=== PATIENT | female | born 1965 ===

== ENCOUNTER 2017-06-08 06:12 | Emergency (ER) | payer OTHER ==
[~2017-06-08] VITALS: Ht 154.9 cm; Wt 56.7 kg
--- NOTE | 2017-06-08 06:36 | PHYS DOC ---
Past Medical History Past Medical History: Anxiety, Other Additional Past Medical Histor: NECK PROBLEM, "PRE DIABETES", "KIDNEY PROBLEM" Past Surgical History: Cholecystectomy, Hysterectomy, Other Additional Past Surgical Histo: HERNIA REPAIR Alcohol Use: Occasionally Drug Use: None Adult General Chief Complaint Chief Complaint: BACK INJURY HPI HPI Patient is a 51 year old F who presents with T spine pain s/p fall. Pt was walking dog and fell 3 days ago and fell. No LOC. No RUE pain. No cp, back pain has been getting worse over the past 3 days. No other complaints. Review of Systems Review of Systems Constitutional: Denies fever or chills [] Eyes: Denies change in visual acuity, redness, or eye pain [] HENT: Denies nasal congestion or sore throat [] Respiratory: Denies cough or shortness of breath [] Cardiovascular: No additional information not addressed in HPI [] GI: Denies abdominal pain, nausea, vomiting, bloody stools or diarrhea [] : Denies dysuria or hematuria [] Musculoskeletal: upper back pain Integument: Denies rash or skin lesions [] Neurologic: Denies headache, focal weakness or sensory changes [] Current Medications Current Medications Current Medications Medications (Trade) Dose Ordered Sig/Funmilayo Start Time Stop Time Status Last Admin Dose Admin Ketorolac Tromethamine (Toradol Im) 60 mg 1X ONCE 06/08/17 07:00 06/08/17 07:01 DC 06/08/17 07:34 60 MG Allergies Allergies Allergies Coded Allergies Type Severity Reaction Last Updated Verified latex Allergy Unknown 04/01/15 No morphine Allergy Unknown 04/01/15 Yes Physical Exam Physical Exam Constitutional: Well developed, well nourished, no acute distress, non-toxic appearance. [] HENT: Normocephalic, atraumatic, bilateral external ears normal, oropharynx moist, no oral exudates, nose normal. [] Eyes: PERRLA, EOMI, conjunctiva normal, no discharge. [] Neck: Normal range of motion, no tenderness, supple, no stridor. [] Cardiovascular:Heart rate regular rhythm, no murmur [] Lungs & Thorax: Bilateral breath sounds clear to auscultation [] Abdomen: Bowel sounds normal, soft, no tenderness, no masses, no pulsatile masses. [] Skin: Warm, dry, no erythema, no rash. [] Back: TTP Tspine right paraspinus, no mideline TTP Extremities: No tenderness, no cyanosis, no clubbing, ROM intact, no edema. [] Neurologic: Alert and oriented X 3, normal motor function, normal sensory function, no focal deficits noted. [] Psychologic: Affect normal, judgement normal, mood normal. [] Current Patient Data Vital Signs Vital Signs Date Time Temp Pulse Resp B/P (MAP) Pulse Ox O2 Delivery O2 Flow Rate FiO2 06/08/17 06:20 98.4 80 22 97 Room Air 98.4 EKG EKG [] Radiology/Procedures Radiology/Procedures X-ray of the chest NAD X-ray of the right shoulder no obvious fracture X-ray of the T-spine no obvious fracture [] Course & Med Decision Making Course & Med Decision Making Pertinent Labs and Imaging studies reviewed. (See chart for details) Patient was seen and examined emergency room x-rays of the right shoulder, T- spine, chest x-ray were ordered along with 60 mg of Toradol 0819: Patient was reevaluated in which she was feeling much better and updated on the results of her x-ray. Patient is ready go home. Recommended short-term follow-up with PCP in one to 2 days. Patient was explained she'll be going home with a muscle relaxer and anti-inflammatory pain medication. MDM: After reviewing the chart, CC/HPI/PMH, physical exam, [radiological results], I do not believe the patient sustained a significant traumatic injury warranting further workup and/or admission at this time. On reevaluation the patient has improved and is ready go home. Patient is stable for discharge. Additional verbal discharge instructions were provided to the patient and that if symptoms get worse or any new symptoms arise that are worrisome to the patient she is to return to the emergency room immediately [] Dragon Disclaimer Dragon Disclaimer This electronic medical record was generated, in whole or in part, using a voice recognition dictation system. Departure Departure Impression: Primary Impression: Thoracic spine pain Additional Impressions: Fall Right shoulder pain Disposition: 01 HOME, SELF-CARE Referrals: NO PCP (PCP) Patient Instructions: Back Pain, Adult Additional Instructions: Please follow up with you family doctor next one to 2 days for further evaluation and management Scripts Diazepam (VALIUM) 5 Mg Tablet 5 MG PO TID for 5 Days, #15 TAB Prov: ANDRES RIVAS DO 06/08/17 Ibuprofen (IBUPROFEN) 800 Mg Tablet 800 MG PO PRN Q8HRS Y for PAIN for 10 Days, #40 TAB Prov: ANDRES RIVAS DO 06/08/17 Problem Qualifiers ANDRES RIVAS DO Jun 08, 2017 06:35
[2017-06-08] MEDS ORDERED: KETOROLAC TROMETHAMINE 60 MG/2 ML INJ. IM ONE (07:00)
[2017-06-08] MEDS ORDERED: DIAZ5TAB PO (08:23)
[2017-06-08] MEDS ORDERED: IBUP-1060 PO (08:23)
[2017-06-08 08:33] VITALS: BP 145/67
--- NOTE | 2017-06-08 10:04 | RAD ---
Chest radiograph 2 views 06/08/2017 Clinical indication: Fell 3 days ago with upper back pain and right shoulder pain. Comparison: Chest radiograph 02/26/2009. Findings: Cardiac and mediastinal silhouettes are within normal limits. No pleural effusion, pneumothorax or focal consolidation. Partial visualization right upper quadrant cholecystectomy clips. There is multilevel thoracic spondylosis with mild age-indeterminate anterior superior compression deformities of the upper thoracic spine. Impression: 1. No acute cardiopulmonary abnormality. 2. Age-indeterminate mild anterior-superior compression deformities of the upper thoracic spine. Correlation for point tenderness is recommended.
--- NOTE | 2017-06-08 10:08 | RAD ---
Thoracic spine 3 views 06/08/2017 Clinical indication: Fall with upper back pain. Comparison: Same day chest radiograph. Findings: There are mild age-indeterminate compression deformities of the upper thoracic spine with no evidence for bony retropulsion. Normal thoracic alignment. Impression: Age-indeterminate anterior superior compression deformities of the upper thoracic spine. Correlation with point tenderness is recommended and if clinically indicated noncontrast CT T-spine could be obtained for further characterization. These results were discussed Dr. Steward of the emergency service by telephone at 10:05 AM 06/08/[address] Damir Dior.
--- NOTE | 2017-06-08 10:09 | RAD ---
3 views right shoulder radiograph 06/08/2017 Clinical indication: Right shoulder pain status post fall. Comparison: None. Findings: No acute fracture or traumatic malalignment of the right shoulder. Glenohumeral articulation maintained. No abnormal periarticular calcifications. Impression: No acute osseous abnormality.
== END 2017-06-08 08:34 | disposition home or self-care (01) ==
LOC: ER 06:12
DX: M54.6 Pain in thoracic spine (principal); M25.511 Pain in right shoulder; F41.9 Anxiety disorder, unspecified; Z91.040 Latex allergy status; Z88.5 Allergy status to narcotic agent; W18.39XA Other fall on same level, initial encounter; Y93.K1 Activity, walking an animal; Y92.89 Other specified places as the place of occurrence of the external cause; Y99.8 Other external cause status
CPT/HCPCS: 71020; 72072; 73030; 96372; 99284; J1885

== ENCOUNTER 2017-11-20 06:06 | Emergency (ER) | payer OTHER | END 2017-11-20 07:03 | disposition home or self-care (01) | LOC: ER 06:06 | DX: S40.862A Insect bite (nonvenomous) of left upper arm, initial encounter (principal); S40.861A Insect bite (nonvenomous) of right upper arm, initial encounter; S80.862A Insect bite (nonvenomous), left lower leg, initial encounter; S80.861A Insect bite (nonvenomous), right lower leg, initial encounter; Z88.5 Allergy status to narcotic agent; Z91.040 Latex allergy status; W57.XXXA Bitten or stung by nonvenomous insect and other nonvenomous arthropods, initial encounter; Y93.89 Activity, other specified; Y99.8 Other external cause status; Y92.89 Other specified places as the place of occurrence of the external cause | CPT/HCPCS: 99283 ==